=== PATIENT | female | born 1960 | race Caucasian/White ===

== ENCOUNTER 2019-03-16 19:54 | Emergency (ER) | payer OTHER ==
[~2019-03-16] VITALS: Ht 157.5 cm; Wt 72.1 kg
[~2019-03-16 19:54] MED LIST: BYSTOLIC 5 MG5 M1 PO; LISINOPRIL-HCT1 EAC1 PO
[2019-03-16 20:34] LABS: ABSOLUTE BASOPHILS 0.1 thou/uL (0.0-0.2); ABSOLUTE EOSINOPHILS 0.3 thou/uL (0.0-0.7); ABSOLUTE LYMPHOCYTES 2.5 thou/uL (0.8-5.3); ABSOLUTE MONOCYTES 0.7 thou/uL (0.0-1.2); ABSOLUTE NEUTROPHILS 5.6 thou/uL (1.6-8.1); BASOPHILS 1.2 %; EOSINOPHILS 3.3 %; HEMATOCRIT 44.2 % (37.0-47.0); HEMOGLOBIN 15.4 gm/dL (12.0-15.0); LYMPHOCYTES 27.3 %; MCH 31.3 pg (26.0-34.0); MCHC 34.9 g/dL (28.0-37.0); MCV 89.6 fL (80.0-100.0); MONOCYTES 7.5 %; MPV 8.3 fl. (7.2-11.1); NUCLEATED RBCS 0 /100WBC; PLATELET COUNT* 383 thou/uL (150-400); POLYS 60.7 %; RBC 4.94 mil/uL (4.20-5.00); RDW-CV 13.4 % (10.5-14.5); WBC 9.2 thou/uL (4.0-11.0)
[2019-03-16 20:40] LABS: CALCIUM 10.4 mg/dL (8.5-10.1); CREATININE 1.5 mg/dL (0.6-1.3)
[2019-03-16 20:42] LABS: POTASSIUM 2.8 mmol/L (3.5-5.1)
[2019-03-16 20:52] LABS: ALBUMIN 3.6 g/dL (3.4-5.0); MAGNESIUM 2.4 mg/dL (1.8-2.4); TOTAL BILIRUBIN 0.4 mg/dL (<0.1-1.0); TOTAL PROTEIN 8.1 g/dL (6.4-8.2)
[2019-03-16] MEDS ORDERED: POTASSIUM20 PO (23:51)
[2019-03-16 23:59] VITALS: BP 130/66
== END 2019-03-17 | disposition home or self-care (01) ==
LOC: M.ERS 19:54
PROVIDERS: Emergency Medicine
DX: R20.2 Paresthesia of skin (principal); I10 Essential (primary) hypertension; Z90.710 Acquired absence of both cervix and uterus; Z88.2 Allergy status to sulfonamides; F17.210 Nicotine dependence, cigarettes, uncomplicated

== ENCOUNTER 2019-04-02 08:16 | Inpatient (IN) | payer OTHER ==
[~2019-04-02] VITALS: Ht 157.5 cm; Wt 70.8 kg
[~2019-04-02 08:16] MED LIST changes: +POTASSIUM20 PO
[2019-04-02 08:18] VITALS: BP 129/60
[2019-04-02 08:39] LABS: ABSOLUTE BASOPHILS 0.2 thou/uL (0.0-0.2); ABSOLUTE EOSINOPHILS 0.2 thou/uL (0.0-0.7); ABSOLUTE LYMPHOCYTES 1.8 thou/uL (0.8-5.3); ABSOLUTE MONOCYTES 1.2 thou/uL (0.0-1.2); ABSOLUTE NEUTROPHILS 9.1 thou/uL (1.6-8.1); BASOPHILS 1.4 %; EOSINOPHILS 1.7 %; HEMATOCRIT 48.5 % (37.0-47.0); HEMOGLOBIN 16.6 gm/dL (12.0-15.0); LYMPHOCYTES 14.7 %; MCH 30.8 pg (26.0-34.0); MCHC 34.2 g/dL (28.0-37.0); MCV 90.2 fL (80.0-100.0); MONOCYTES 9.8 %; MPV 8.6 fl. (7.2-11.1); NUCLEATED RBCS 0 /100WBC; PLATELET COUNT* 394 thou/uL (150-400); POLYS 72.4 %; RBC 5.38 mil/uL (4.20-5.00); RDW-CV 13.4 % (10.5-14.5); WBC 12.6 thou/uL (4.0-11.0)
[2019-04-02 08:51] LABS: CALCIUM 10.3 mg/dL (8.5-10.1); CREATININE 1.8 mg/dL (0.6-1.3); POTASSIUM 3.3 mmol/L (3.5-5.1)
[2019-04-02 08:54] LABS: PROTIME 10.7 Seconds (9.20-11.50)
[2019-04-02 09:02] LABS: ALBUMIN 3.9 g/dL (3.4-5.0); TOTAL BILIRUBIN 0.6 mg/dL (<0.1-1.0); TOTAL PROTEIN 8.1 g/dL (6.4-8.2); TROPONIN-I LEVEL 0.07 ng/mL (<0.06)
[2019-04-02 13:07] LABS: CHOLESTEROL 306 mg/dL (<200); HDL CHOLESTEROL 36 mg/dL (>40); LDL CHOLESTEROL 212 mg/dL (<100); SERUM ASSESSMENT Clear; TC:HDL 8.5 Ratio (Not establshd); TRIGLYCERIDE 290 mg/dL (<150); VLDL 58 mg/dL (<40)
[2019-04-02 15:54] VITALS: BP 141/58
--- NOTE | 2019-04-02 17:09 | 2DMMODE ---
[place] [address] 2 D/M-MODE ECHOCARDIOGRAM Name: XU BAUTISTA Room: [facility] ADM IN [facility]#: [id number] Admission: 04/02/19 Attend Phys: Drew Patel Discharge: Date of : 64 Date of Service: 04/02/19 1709 Report #: [id number] THIS REPORT FOR: //name// APPROVED REPORT Study performed: 04/02/2019 15:35:59 EXAM: Comprehensive 2D, Doppler, and color-flow Echocardiogram Patient Location: In-Patient Room #: 170 BSA: 1.70 HR: 63 bpm BP: 141/58 mmHg Other Information Study Quality: Good Indications Chest Pain 2D Dimensions IVSd: 17.12 (7-11mm) LVOT Diam: 20.30 (18-24mm) LVDd: 34.79 mm PWd: 14.71 (7-11mm) Ascending Ao: 32.56 (22-36mm) LVDs: 23.97 (25-40mm) Aortic Root: 27.88 mm Volumes Left Atrial Volume (Systole) LA ESV Index: 16.50 mL/m2 Aortic Valve AoV Peak Clint.: 1.70 m/s AO Peak Gr.: 11.50 mmHg LVOT Max P.96 mmHg AO Mean Gr.: 6.03 mmHg LVOT Mean P.51 mmHg LVOT Max V: 1.22 m/s AO V2 VTI: 28.64 cm LVOT Mean V: 0.71 m/s BOBBI (VTI): 2.67 cm2 LVOT V1 VTI: 23.61 cm Mitral Valve E/A Ratio: 0.58 MV Decel. Time: 484.83 ms MV E Max Clint.: 0.31 m/s MV PHT: 140.60 [place] [address] 2 D/M-MODE ECHOCARDIOGRAM Name: XU BAUTISTA Room: [place] [address] ADM IN .R.#: [id number] Admission: 04/02/19 Attend Phys: Drew Patel Discharge: Date of : 64 Date of Service: 04/02/19 1709 Report #: [id number] MVA (PHT): 1.56 cm2 TDI E/Lateral E': 5.17 E/Medial E': 7.75 Medial E' Clint.: 0.04 m/s Lateral E' Clint.: 0.06 m/s Pulmonary Valve PV Peak Clint.: 0.93 m/s PV Peak Gr.: 3.47 mmHg Tricuspid Valve RAP Estimate: 5.00 mmHg TR Peak Gr.: 15.94 mmHg RVSP: 20.94 mmHg PA Pressure: 20.94 mmHg Left Ventricle The left ventricle is normal size. There is normal LV segmental wall motion. Moderate concentric left ventricular hypertrophy. Left ventricular systolic function is normal. The left ventricular ejection fraction is within the normal range. LVEF is 65%. Grade I - abnormal relaxation pattern. Right Ventricle The right ventricle is normal size. The right ventricular systolic function is normal. Atria The left atrium size is normal. The right atrium size is normal. Aortic Valve The aortic valve is normal in structure. No aortic regurgitation is present. There is no aortic valvular stenosis. Mitral Valve The mitral valve is normal in structure. There is no mitral valve regurgitation noted. No evidence of mitral valve stenosis. Tricuspid Valve The tricuspid valve is normal in structure. Mild tricuspid regurgitation. Pulmonic Valve The pulmonary valve is normal in structure. There is no pulmonic [place] [address] 2 D/M-MODE ECHOCARDIOGRAM Name: XU BAUTISTA Room: [address] IN [facility]#: [id number] Admission: 04/02/19 Attend Phys: Drew Patel Discharge: Date of : 64 Date of Service: 04/02/19 1709 Report #: [id number] Great Vessels The aortic root is normal in size. IVC is normal in size and collapses >50% with inspiration. Pericardium There is no pericardial effusion. <Conclusion> The left ventricle is normal size. Moderate concentric left ventricular hypertrophy. Left ventricular systolic function is normal. The left ventricular ejection fraction is within the normal range. LVEF is 65%. Grade I - abnormal relaxation pattern. The right ventricle is normal size. The left atrium size is normal. The aortic valve is normal in structure. The mitral valve is normal in structure. The tricuspid valve is normal in structure. IVC is normal in size and collapses >50% with inspiration. There is no pericardial effusion. There is normal LV segmental wall motion. <ELECTRONICALLY SIGNED> By: Jonnathan Ruff MD, FACC 04/02/191708 08 08 Jonnathan Ruff MD, FACC /INF
--- NOTE | 2019-04-02 17:35 | EKG ---
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: MS : 1960 Requested By: Shaquille Coyle Order Number: [id number] MD: Kosta Lawrence Measurements Intervals [place] Rate: 87 P: 17 VA: 144 QRS: -13 QRSD: 154 T: -24 QT: 438 QTc: 527 Interpretive Statements Sinus rhythm Possible left atrial enlargement Right bundle branch block No previous ECG available for comparison Electronically Signed On 04-02-2019 17:34:50 CDT by Kosta Lawrence [email or web address] <ELECTRONICALLY SIGNED> By: Kosta Lawrence MD, [facility] 04/02/19 1734 D: [id number] 7 Kosta Lawrence MD, FACC /EPI
--- NOTE | 2019-04-02 17:36 | EKG ---
[place] [address] ELECTROCARDIOGRAM REPORT Name: XU BAUTISTA Room: [place] [address] ADM IN [facility].#: [id number] Admission: 04/02/19 Attend Phys: Alida Henry Discharge: Date of : 64 Report #: [id number] THIS REPORT FOR: //name// [facility] ED Test Date: 2019-04-02 Test Time: 11:07:21 Pat Name: XU BAUTISTA Department: Room: [facility] Gender: F Hospital Intern: MS : 1960 Requested By: Shaquille Coyle Order Number: [id number] MD: Kosta Lawrence Measurements Intervals [place] Rate: 62 P: -4 CT: 168 QRS: -10 QRSD: 154 T: 22 QT: 475 QTc: 483 Interpretive Statements Sinus rhythm Right bundle branch block Left ventricular hypertrophy Borderline prolonged QT interval No previous ECG available for comparison Electronically Signed On 04-02-2019 17:36:06 CDT by Kosta Lawrence [email or web address] <ELECTRONICALLY SIGNED> By: Kosta Lawrence MD, [facility] 04/02/19 1736 06 06 Kosta Lawrence MD, FACC /EPI
[2019-04-02 19:45] VITALS: BP 148/75
[2019-04-02 20:00] VITALS: BP 150/61
--- NOTE | 2019-04-02 20:00 | NUR ---
RECEIVED REPORT AND ADMITTED TO ROOM AT 1945. NO ACUTE DISTRESS, DENIES CHEST PAIN BUT NUMBNESS CONT INTO RT THUMB. TELEMETRY APPLIED SHOWING SR. SEE ADMISSION ASSESSMENT AND HX. WILL CONT TO ASSIST NEEDED.
[2019-04-03] VITALS (13 sets, daily range): BP systolic 105–151; BP diastolic 51–78
--- NOTE | 2019-04-03 06:11 | NUR ---
SLEPT WELL TONIGHT. NO COMPLAINTS VOICED. TELEMETRY SHOWING SB WITH RATE OCC INTO UPPER 40'S. NPO SINCE [place] FOR TEST THIS AM. HS GOALS OF REST AND SAFETY ACHIEVED. HOURLY ROUNDING OBSERVED.
--- NOTE | 2019-04-03 10:47 | NUR ---
RECEIVED REPORT AND ASSUMED CARE OF PT AT 0730.PT IS A/OX4.TRACING SB IN THE MONITOR.IV PATENT WITH NS INFUSING AT 75ML/HR PER ORDER.NPO FOR CATH TODAY.DENIES ANY CHEST PAIN AND SOA.ON RA.UP AD JACOB.CONSENT SIGNED BY PT HERSELF FOR CATH.PROCEDURE AND RISK EXPLAINED BY NURSE PRACTIONER.CALL LIGHT AND FALL PRECAUTIONS IN PLACE.WILL CONTINUE TO MONITOR.
--- NOTE | 2019-04-03 15:32 | NUR ---
cm completed initial assssment. discussed d/c plan. pt a&Ox4. 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 pt has support from brother and his family, whom she lives with. pt has 0 DME nor any hx w/HH or SNF, pt has no preference for either if determined services are needed. CM will continue to follow pt to assist as needed.
--- NOTE | 2019-04-03 16:07 | CARD ---
[facility] [address] [place] [address] CARDIAC CATH REPORT Name: XU BAUTISTA VICENTE Room: [address] ADM IN M.R.#: [id number] Admission: 04/02/19 Attend Phys: Alida Henry Discharge: Date of : 64 Report #: [id number] THIS REPORT FOR: //name// APPROVED REPORT Study performed: 04/03/2019 13:31:42 Patient Details Patient Status: In-Patient Room #: 205 The patient is a 58 year-old female Event Personnel Kosta Lawrence Meal Grinder Tender, Laura Grant RN RN, Aaron Kidd Scrub, Nick Canchola (R) Monitor Procedures Performed Left Heart Cath w/or w/o Coronaries Procedure Narrative A 6fr Ultimum Sheath sheath was inserted into the right femoral artery. Coronary angiography was performed using coronary diagnostic catheters. The right coronary system was accessed and visualized with a Diagnostic JR4 catheter. The left coronary system was accessed and visualized with a Diagnostic JL4 catheter. The left ventricle was accessed and visualized with a Diagnostic Angled Pigtail catheter. Left ventricular/Aortic Valve gradient assessed via catheter pullback. Closure device was deployed with a Fr MynxGrip 6/7F. The patient tolerated the procedure well and there were no complications associated with the procedure. Intraoperative Conscious Sedation Sedation start time: 13:59 Case end Time: 14:09 Fentanyl 25 mcg Versed 2 mg Fluoro Time: 1.6 minutes Dose: DAP 01390 cGycm2 623 mGy Contrast Type and Amount: Visipaque 100 ml Coronary Angiography The patient's coronary anatomy is right dominant. Diagnostic Cath Left Main Normal and trifurcates into an LAD, circumflex [place] [address] CARDIAC CATH REPORT Name: XU BAUTISTA Room: [address] IN [facility]#: [id number] Admission: 04/02/19 Attend Phys: Alida Henry Discharge: Date of : 64 Report #: [id number] LAD Normal in the proximal mid and distal portion. Diagonal 1 Moderate size normal and branch. Circumflex Normal in the proximal mid and distal portion. OM1 Normal large and branch. OM2 Moderate size and normal. Right Coronary Normal in the proximal mid and distal portion. R PDA Normal. RPLV Moderate in size and branched. Normal. Ramus Large branched vessel that is normal. Left Ventriculography The left ventricle is normal in size with hyperdynamic contractility. The left ventricular ejection fraction is estimated to be 90%. Left ventricular wall motion abnormalities are not present. Left ventricular gram findings consistent with possible hypertrophic obstructive cardiomyopathy. Hemodynamics The aortic pressure is 117/67 mmHg with a mean of 87 mmHg. The left ventricular pressure is 115/2 mmHg with a mean of mmHg. The left ventricular end diastolic pressure is 6 mmHg. Conclusion 1. Normal coronary arteries. 2. Normal left ventricular end-diastolic pressure. 3. No gradient in the pullback across the aortic valve. 4. Hyperdynamic left ventricular systolic function with near cavity obliteration on systole suggestive of hypertrophic obstructive cardiomyopathy. Recommendations 1. Continue medical management. <ELECTRONICALLY SIGNED> By: Kosta Lawrence MD, [facility] 04/03/19 1607 1607 1607Microberta Lawrence MD, FACC /INF
--- NOTE | 2019-04-03 16:46 | NUR ---
PT IS A/OX4.TRACING SR ON THE MONITOR.PT HAD CATH TODAY.RT GROIN CATH CLEAN DRY AND INTACT.NO SIGNS OF HEMMORAGE AND HAEMOTOMA.NO STENTS PLACED.IV PATENT WITH NS INFUSING AT 75ML/HR.PT KEPT ON STRICT BED REST AND EDUCATED ON LIMB MOVEMENT LIMITATION.POST CATH VITALS MONITORES AND CHARTED PER PROTOCOL.HIGH BLOOD PRESSURE MANAGED WITH MED.ELECTROLYTE REPLACED PER PROTOCOL.NO COMPLAINTS OF CHEST PAIN.HRLY COMPLETED.CALL LIGHT AND FALL PRECAUTIONS IN PLACE.WILL CONTINUE TO MONITOR.
[2019-04-03 20:39] LABS: CALCIUM 9.4 mg/dL (8.5-10.1); CREATININE 1.6 mg/dL (0.6-1.3); MAGNESIUM 2.3 mg/dL (1.8-2.4); POTASSIUM 4.2 mmol/L (3.5-5.1)
[2019-04-04] VITALS: BP 141/71
[2019-04-04 04:00] VITALS: BP 160/83
--- NOTE | 2019-04-04 04:55 | NUR ---
PT CARE ASSUMED AT 1930. SAT MAINTAINED IN RA. ALERT AND ORIENTED X4. CALL LIGHT WITHIN REACH AND BED IN LOW POSITION. DENIES PAIN AND SOB. CATH SITE C/D/I. HOURLY ROUDNING DONE FOR PT SAFETY.
[2019-04-04 05:32] LABS: HEMATOCRIT 40.4 % (37.0-47.0); MPV 8.6 fl. (7.2-11.1); RBC 4.44 mil/uL (4.20-5.00); RDW-CV 13.8 % (10.5-14.5); WBC 7.8 thou/uL (4.0-11.0)
[2019-04-04 05:33] LABS: CALCIUM 9.1 mg/dL (8.5-10.1); CREATININE 1.3 mg/dL (0.6-1.3)
[2019-04-04 05:47] LABS: HEMOGLOBIN 13.8 gm/dL (12.0-15.0)
[2019-04-04 07:51] VITALS: BP 156/63
--- NOTE | 2019-04-04 09:33 | NUR ---
RECEIVED REPORT AND ASSUMED CARE OF PT AT 0735.PT IS A/OX4.TRACING SB ON THE MONITOR.IV PATENT WITH IV FLUIDS INFUSING.ON RA.UP STAND BY.CATH SITE CLEAN DRY AND INTACT.NO SKIN ISSUES.NO COMPLAINTS OF PAIN.SAFETY PRECAUTIONS IN PLACE.WILL CONTINUE TO MONITOR.
[2019-04-04] MEDS ORDERED: TOPROL XL25 MG PO (11:40)
[2019-04-04] MEDS ORDERED: TOPROL XL50 MG PO (11:43)
[2019-04-04 11:48] VITALS: BP 137/62
[2019-04-04] MEDS ORDERED: LISINOPRIL10 MG PO (11:50)
--- NOTE | 2019-04-04 12:43 | NUR ---
PT OK TO DISCHARGE.DISCHARGE PAPER WORK COMPLETED AND GIVEN TO PT.NEW SCRIPTS GIVEN WITH EDUCATION.IV AND HEART MONITOR TAKEN OUT AND RETURNED TO STATION.ALL PERSONAL BELONGINGS HANDED OVER TO PT.EDUCATION GIVEN ON FOLLOW UP AND DIET.PT WAITING ON ROOM FOR HER RIDE.
[2019-04-04] MEDS ORDERED: LIPITOR10 MG PO (13:01)
== END 2019-04-04 14:55 | disposition home or self-care (01) | DRG 280 ==
LOC: M.ERS 08:16 → M.TBA-ER 11:19 → M.2W 11:19
PROVIDERS: Emergency Medicine; Internal Medicine Cardiovascular Disease; Registered Nurse; ADMIT Internal Medicine
PROC: B2151ZZ Fluoroscopy of Left Heart using Low Osmolar Contrast (ICD-10-PCS; principal; 2019-04-03)
PROC: B211YZZ Fluoroscopy of Multiple Coronary Arteries using Other Contrast (ICD-10-PCS; 2019-04-03)
PROC: 4A023N7 Measurement of Cardiac Sampling and Pressure, Left Heart, Percutaneous Approach (ICD-10-PCS; 2019-04-03)
DX: I21.4 Non-ST elevation (NSTEMI) myocardial infarction (principal); N17.0 Acute kidney failure with tubular necrosis; I50.33 Acute on chronic diastolic (congestive) heart failure; I42.2 Other hypertrophic cardiomyopathy; E87.6 Hypokalemia; I11.0 Hypertensive heart disease with heart failure; D72.829 Elevated white blood cell count, unspecified; F17.210 Nicotine dependence, cigarettes, uncomplicated; E78.5 Hyperlipidemia, unspecified; Z90.710 Acquired absence of both cervix and uterus; Z88.2 Allergy status to sulfonamides; Z79.82 Long term (current) use of aspirin; Z79.899 Other long term (current) drug therapy; Z80.0 Family history of malignant neoplasm of digestive organs; Z80.8 Family history of malignant neoplasm of other organs or systems; Z71.6 Tobacco abuse counseling

== ENCOUNTER 2019-11-08 11:42 | Emergency (ER) | payer OTHER ==
[~2019-11-08] VITALS: Ht 157.5 cm; Wt 74.8 kg
[~2019-11-08 11:42] MED LIST changes: +ACYCLOVIR 400400 MG PO; +CO Q-10100 MG PO; +FISH OIL 1,001000 M2 PO; +KLOR-CON 1010 MEQ PO; +LIPITOR10 MG PO; +LISINOPRIL10 MG PO; +PREDNISONE 20 M20 M1 PO; +TOPROL XL25 MG PO; +TOPROL XL50 MG PO
[2019-11-08 12:42] LABS: URINE BILIRUBIN NEGATIVE (Negative); URINE BLOOD TRACE (Negative); URINE CLARITY SL CLOUDY; URINE COLOR YELLOW; URINE GLUCOSE-RANDOM NEGATIVE (Negative); URINE KETONES NEGATIVE (Negative); URINE LEUKOCYTES-REFLEX NEGATIVE (Negative); URINE NITRITE-REFLEX NEGATIVE (Negative); URINE PROTEIN TRACE (Negative); URINE SPECIFIC GRAVITY 1.025 (1.005-1.030); URINE UROBILINOGEN 0.2 E.U./dl (0.2-1.0)
[2019-11-08 12:53] LABS: SQUAMOUS >10 Many /LPF (0-3); URINE RBC None Seen /HPF (0-2); URINE WBC-REFLEX 0-5 Rare /HPF (0-5)
[2019-11-08 12:55] LABS: AMORPHOUS URATES Moderate /LPF (None Seen); CASTS None Seen /LPF (None Seen); MUCUS 0-3 Light strn/LPF (None Seen)
[2019-11-08 13:02] LABS: ABSOLUTE EOSINOPHILS 0.3 thou/uL (0.0-0.7); ABSOLUTE LYMPHOCYTES 2.4 thou/uL (0.8-5.3); ABSOLUTE MONOCYTES 0.7 thou/uL (0.0-1.2); ABSOLUTE NEUTROPHILS 4.4 thou/uL (1.6-8.1); BASOPHILS 0.2 %; EOSINOPHILS 3.3 %; HEMATOCRIT 43.2 % (37.0-47.0); LYMPHOCYTES 30.8 %; MCH 31.5 pg (26.0-34.0); MCHC 34.8 g/dL (28.0-37.0); MCV 90.6 fL (80.0-100.0); MONOCYTES 8.6 %; MPV 7.7 fl. (7.2-11.1); NUCLEATED RBCS 0 /100WBC; PLATELET COUNT* 354 thou/uL (150-400); POLYS 57.1 %; RBC 4.77 mil/uL (4.20-5.00); RDW-CV 13.3 % (10.5-14.5); WBC 7.7 thou/uL (4.0-11.0)
[2019-11-08 13:09] LABS: CALCIUM 9.9 mg/dL (8.5-10.1); CREATININE 1.3 mg/dL (0.6-1.3)
[2019-11-08] MEDS ORDERED: KLOR-CON 10 ER10 MEQ PO ×2 (15:16→15:20)
[2019-11-08 15:26] VITALS: BP 141/64
--- NOTE | 2019-11-08 16:12 | EKG ---
[place] [address] ELECTROCARDIOGRAM REPORT Name: LILYXU [facility] [id number] Admission: 11/08/19 Attend Phys: Discharge: 11/08/19 Date of : 64 Report #: [id number] THIS REPORT FOR: //name// [facility] ED Test Date: 2019-11-08 Test Time: 12:48:50 Pat Name: XU BAUTISTA Department: Room: Gender: F Business Office Coordinator: CYN : 1960 Requested By: Maged Casiano Order Number: [id number] MD: Jaylen Carter Measurements Intervals [place] Rate: 63 P: 30 MO: 168 QRS: 1 QRSD: 162 T: 39 QT: 455 QTc: 466 Interpretive Statements Sinus rhythm Probable left atrial enlargement Right bundle branch block Compared to ECG 05/14/2019 16:11:39 Left ventricular hypertrophy no longer present Electronically Signed On 11-08-2019 16:11:45 TECHNICAL SERVICE REP by Jaylen Carter [email or web address] <ELECTRONICALLY SIGNED> By: Jaylen Carter MD, [facility] 11/08/19 1611 D: 128 1248 Jaylen Carter MD, FACC /EPI
== END 2019-11-08 15:27 | disposition home or self-care (01) ==
LOC: M.ERS 11:42
PROVIDERS: Nurse Practitioner Psychiatric/Mental Health
DX: E87.6 Hypokalemia (principal); R42 Dizziness and giddiness; I10 Essential (primary) hypertension; F17.210 Nicotine dependence, cigarettes, uncomplicated; Z90.710 Acquired absence of both cervix and uterus; Z88.2 Allergy status to sulfonamides

== ENCOUNTER 2019-11-29 10:05 | Inpatient (IN) | payer OTHER ==
[~2019-11-29] VITALS: Ht 157.5 cm; Wt 70.1 kg
--- NOTE | ~2019-11-29 | EEG ---
[address] [address] EEG STUDY REPORT Name: XU BAUTISTA VICENTE Room: [address] IN M.R.#: [id number] Admission: 11/29/19 Attend Phys: Irving Sun Discharge: Date of : 64 Report #: [id number] THIS REPORT FOR: //name// CC: Adilson Ervin DATE OF SERVICE: 11/30/2019 This patient is being evaluated for the possibility of seizures as the cause of syncope. EEG was done by placing the electrode by standard 10-20 system of electrode placement. Both referential and sequential montages were used for recording. Background activity in this patient's EEG is about 11 Hz and 30 microvolt. It is a very well formed background activity. The patient went to sleep that is associated with bilateral slowing and vertex sharp waves. Throughout the record, no active epileptiform activity was noticed. IMPRESSION: This patient's EEG is unremarkable. Thank you very much for this referral. By: 1308 1314Pdianne Salcido MD /nt
--- NOTE | ~2019-11-29 | CON ---
[address] [address] CONSULTATION Name: XU BAUTISTA Room: [address] IN M.R.#: [id number] Admission: 11/29/19 Attend Phys: Irving Sun Discharge: Date of : 64 Report #: [id number] THIS REPORT FOR: //name// CC: Adilson Ervin DATE OF SERVICE: 11/29/2019 HISTORY OF PRESENT ILLNESS: A 59-year-old female patient who was evaluated by me for an episode of syncope. The patient does not remember much about it. She said she felt dizzy and then she passed out. It lasted just for a few seconds. The patient thinks she had this in the past, but she does not know when it happened. When she came in, she was slightly hyponatremic with potassium of 3, but she had run low potassium in the past. She feels back to her baseline now. REVIEW OF SYSTEMS: Positive for coronary workup in the past and looks like that was unremarkable. The patient does not know any symptoms suggestive of strokes in the past except during this admission. At this time, she had an episode of syncope, but her MRI demonstrated multiple old and new strokes. REVIEW OF SYSTEMS: A 14-point review of system was carried out. The patient indicated that she does not have any new eye, ENT, respiratory, GI, , musculoskeletal, constitutional, dermatological, hematological, psychiatric, throat, and allergic symptom associated with present symptomatology. She did have syncope. PAST MEDICAL HISTORY: Positive for similar symptoms, but the history is not very clear. FAMILY HISTORY: Negative for early age stroke. SOCIAL HISTORY: She smokes. She said she is cutting back and she smokes about 2-3 cigarettes a day now. PHYSICAL EXAMINATION: Indicate she is alert, responsive, able to follow simple and complex command. Her speech, concentration, fund of knowledge and memory is at her baseline. Cranial nerve examination 2-12 looks unremarkable. Strength, sensation, reflexes and tone look symmetrical. I could not look at the patient's fundus. There is no meningeal sign. There is no thyroid mass. There is no carotid bruit. Cardiac and respiratory examinations appear noncontributory. Blood pressure is 117/61, respiration is 18, pulse is 87, and temperature is 97.9. LABORATORY DATA: White count is 11. Her cholesterol is 306 and LDL is 212. [place] [address] CONSULTATION Name: XU BAUTISTA Room: [address] IN [facility]#: [id number] Admission: 11/29/19 Attend Phys: Irving Sun Discharge: Date of : 64 Report #: [id number] Imaging studies were reviewed and is summarized as above. IMPRESSION: 1. Multiple cerebrovascular accidents. This is most likely secondary to small vessel disease caused by severe dyslipidemia and hypertension. Smoking also contributed to that. Embolization is considered less likely, but I will suggest 30 days event monitor or implantable monitor to monitor the rhythm further as an outpatient. 2. Clinically, it does not look like vasculitis. We will send some blood workup in this patient, but there is limitation how much workup can be done and the BUN and creatinine is high and GFR is only 20 and I will avoid any dye in this patient at least for the time being. The patient was not on any antiplatelet therapy and I will suggest either putting her on aspirin or Plavix. She should be on intensive statin therapy. She is not very compliant and I discussed with her that she needs to be compliant. The patient's episode of syncope was not because of the stroke or anything else, which have demonstrated so far. I will suggest getting a Cardiology consult to consider either 30 days event monitor or implantable monitor in this patient. This patient does need further workup and Dr. Jett will follow up this patient with you from tomorrow. By: 1826 02Ash Salcido MD /nt
[~2019-11-29 10:05] MED LIST changes: +KLOR-CON 10 ER10 MEQ PO
[2019-11-29 10:08] VITALS: BP 122/75
[2019-11-29 10:48] LABS: ABSOLUTE EOSINOPHILS 0.2 thou/uL (0.0-0.7); ABSOLUTE LYMPHOCYTES 1.9 thou/uL (0.8-5.3); ABSOLUTE MONOCYTES 1.1 thou/uL (0.0-1.2); ABSOLUTE NEUTROPHILS 7.8 thou/uL (1.6-8.1); BASOPHILS 0.3 %; EOSINOPHILS 1.4 %; HEMATOCRIT 42.9 % (37.0-47.0); HEMOGLOBIN 15.2 gm/dL (12.0-15.0); LYMPHOCYTES 17.5 %; MCH 32.1 pg (26.0-34.0); MCHC 35.5 g/dL (28.0-37.0); MCV 90.3 fL (80.0-100.0); MONOCYTES 9.6 %; MPV 7.6 fl. (7.2-11.1); NUCLEATED RBCS 0 /100WBC; PLATELET COUNT* 396 thou/uL (150-400); POLYS 71.2 %; RBC 4.75 mil/uL (4.20-5.00); RDW-CV 13.2 % (10.5-14.5)
[2019-11-29 10:59] LABS: CALCIUM 10.2 mg/dL (8.5-10.1); CREATININE 2.5 mg/dL (0.6-1.3)
[2019-11-29 11:02] LABS: APTT 24.9 Seconds (25.0-31.3); INR 1.1; PROTIME 10.9 Seconds (9.20-11.50)
[2019-11-29 11:03] LABS: ALBUMIN 3.8 g/dL (3.4-5.0); TOTAL BILIRUBIN 0.6 mg/dL (<0.1-1.0); TOTAL PROTEIN 7.8 g/dL (6.4-8.2)
[2019-11-29 14:26] VITALS: BP 123/70
[2019-11-29] MEDS ORDERED: LISINOPRIL-HCT1 EAC1 PO (16:04)
[2019-11-29 16:17] VITALS: BP 114/59
--- NOTE | 2019-11-29 17:08 | EKG ---
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: : 1960 Requested By: Bi Garcia Order Number: [id number] MD: Jonnathan Ruff Measurements Intervals [place] Rate: 68 P: 16 ME: 178 QRS: -14 QRSD: 153 T: 34 QT: 469 QTc: 499 Interpretive Statements Sinus rhythm Right bundle branch block Probable left ventricular hypertrophy Borderline prolonged QT interval Compared to ECG 11/08/2019 12:48:50 No significant changes Electronically Signed On 11-29-2019 17:07:17 RIGGING UP WORKER by Jonnathan Ruff [email or web address] <ELECTRONICALLY SIGNED> By: Jonnathan Ruff MD, [facility] 11/29/19 1707 1012 1012 Jonnathan Ruff MD, [facility] /EPI
[2019-11-29 17:13] VITALS: BP 117/61
[2019-11-29 17:54] LABS: URINE BLOOD NEGATIVE (Negative); URINE CLARITY CLEAR; URINE COLOR YELLOW; URINE GLUCOSE-RANDOM TRACE (Negative); URINE KETONES NEGATIVE (Negative); URINE LEUKOCYTES-REFLEX TRACE (Negative); URINE NITRITE-REFLEX NEGATIVE (Negative); URINE PROTEIN 1+ (Negative); URINE SPECIFIC GRAVITY >= 1.030 (1.005-1.030); URINE UROBILINOGEN 0.2 E.U./dl (0.2-1.0)
[2019-11-29 17:57] LABS: HYALINE CASTS 4-10 Moderate /LPF (None Seen); SQUAMOUS >10 Many /LPF (0-3); URINE BILIRUBIN 1+ (Negative)
[2019-11-29 17:58] LABS: MUCUS None Seen strn/LPF (None Seen)
[2019-11-29 17:59] LABS: CRYSTALS None Seen /LPF (None Seen); ICTOTEST (BILI CONFIRMATORY) Negative (Negative); URINE RBC None Seen /HPF (0-2); URINE WBC-REFLEX 0-5 Rare /HPF (0-5)
[2019-11-29 18:25] LABS: CHOLESTEROL 292 mg/dL (<200); HDL CHOLESTEROL 34 mg/dL (>40); LDL CHOLESTEROL 222 mg/dL (<100); TC:HDL 8.6 Ratio (Not establshd); TRIGLYCERIDE 184 mg/dL (<150); VLDL 37 mg/dL (<40)
[2019-11-29 18:26] LABS: SERUM ASSESSMENT Clear
[2019-11-29 21:00] VITALS: BP 114/54
[2019-11-30] VITALS: BP 91/51
[2019-11-30 04:00] VITALS: BP 105/48; BP 114/42
[2019-11-30 08:37] VITALS: BP 107/57
[2019-11-30 12:57] VITALS: BP 105/45
[2019-11-30 16:32] VITALS: BP 123/60
[2019-11-30 20:00] VITALS: BP 97/47
[2019-12-01 00:14] VITALS: BP 124/40
[2019-12-01 02:10] LABS: GLYCOHEMOGLOBIN (HGB A1C) 5.3 % (4.8-5.6)
[2019-12-01 04:22] VITALS: BP 97/59
[2019-12-01 07:30] VITALS: BP 149/72
[2019-12-01 11:23] VITALS: BP 140/58
[2019-12-01 13:11] LABS: IgA 180 mg/dL (87-352); IgG 1041 mg/dL (700-1600); IgM 105 mg/dL (26-217)
[2019-12-01 15:42] VITALS: BP 123/69
[2019-12-01 18:39] LABS: CALCIUM 8.9 mg/dL (8.5-10.1); CREATININE 1.6 mg/dL (0.6-1.3); MAGNESIUM 2.1 mg/dL (1.8-2.4); POTASSIUM 3.1 mmol/L (3.5-5.1)
[2019-12-01 20:00] VITALS: BP 144/81
[2019-12-02] VITALS: BP 152/75
[2019-12-02 04:00] VITALS: BP 152/70
[2019-12-02 06:16] LABS: HEMATOCRIT 38.7 % (37.0-47.0); HEMOGLOBIN 13.7 gm/dL (12.0-15.0); MCH 31.9 pg (26.0-34.0); MCHC 35.4 g/dL (28.0-37.0); MCV 90.2 fL (80.0-100.0); MPV 7.9 fl. (7.2-11.1); RBC 4.28 mil/uL (4.20-5.00); RDW-CV 12.9 % (10.5-14.5); WBC 6.7 thou/uL (4.0-11.0)
[2019-12-02 06:38] LABS: ALBUMIN 3.1 g/dL (3.4-5.0); CALCIUM 9.1 mg/dL (8.5-10.1); CREATININE 1.4 mg/dL (0.6-1.3); MAGNESIUM 2.2 mg/dL (1.8-2.4); TOTAL BILIRUBIN 0.2 mg/dL (<0.1-1.0); TOTAL PROTEIN 6.8 g/dL (6.4-8.2)
[2019-12-02 06:39] LABS: POTASSIUM 2.9 mmol/L (3.5-5.1)
[2019-12-02 07:56] VITALS: BP 143/66
[2019-12-02 12:36] VITALS: BP 134/68
[2019-12-02 17:11] VITALS: BP 136/76
[2019-12-02 20:20] VITALS: BP 145/83
[2019-12-03] VITALS (7 sets, daily range): BP systolic 125–140; BP diastolic 54–73
[2019-12-03 06:01] LABS: HEMATOCRIT 36.6 % (37.0-47.0); HEMOGLOBIN 12.9 gm/dL (12.0-15.0); MCH 31.9 pg (26.0-34.0); MCHC 35.3 g/dL (28.0-37.0); MCV 90.3 fL (80.0-100.0); MPV 8.1 fl. (7.2-11.1); RBC 4.06 mil/uL (4.20-5.00); RDW-CV 13.1 % (10.5-14.5); WBC 6.3 thou/uL (4.0-11.0)
[2019-12-03 06:15] LABS: CALCIUM 8.7 mg/dL (8.5-10.1); CREATININE 1.4 mg/dL (0.6-1.3); POTASSIUM 3.8 mmol/L (3.5-5.1)
--- NOTE | 2019-12-03 10:38 | EKG ---
[place] [address] ELECTROCARDIOGRAM REPORT Name: XU BAUTISTA Room: [address] ADM IN M.R.#: [id number] Admission: 11/29/19 Attend Phys: Irving Sun Discharge: Date of : 64 Report #: [id number] THIS REPORT FOR: //name// [facility] Test Date: 2019-12-01 Test Time: 14:56:05 Pat Name: XU BAUTISTA Department: Room: [address] Gender: F Client Services Vice President: : 1960 Requested By: Chris Lackey Order Number: [id number] Derrick MD: Jaylen Carter Measurements Intervals [place] Rate: 62 P: 25 AL: 177 QRS: -21 QRSD: 158 T: 60 QT: 461 QTc: 469 Interpretive Statements Sinus rhythm Right bundle branch block Probable left ventricular hypertrophy Compared to ECG 11/29/2019 10:12:35 No significant changes Electronically Signed On 12-03-2019 10:37:16 HEAD OF PRECISION TARGETING by Jaylen Carter [email or web address] <ELECTRONICALLY SIGNED> By: Jaylen Carter MD, [facility] 12/03/19 1037 1456 1456 Jaylen Carter MD, FAC /EPI
[2019-12-03] MEDS ORDERED: PLAVIX 75 MG TA75 M1 PO (13:00)
[2019-12-03] MEDS ORDERED: LIPITOR 40 MG T40 M1 PO (13:00)
[2019-12-03] MEDS ORDERED: TRILEPTAL300 MG PO (13:01)
[2019-12-03] MEDS ORDERED: ASPIRIN325 PO (13:01)
[2019-12-03] MEDS ORDERED: RENAL-VITE TAB0.8 MG PO (13:02)
--- NOTE | 2019-12-03 17:07 | 2DMMODE ---
[place] [address] 2 D/M-MODE ECHOCARDIOGRAM Name: XU BAUTISTA Room: [address] IN [facility]#: [id number] Admission: 11/29/19 Attend Phys: Gina Ervin Discharge: Date of : 64 Date of Service: 12/03/19 1706 Report #: [id number] THIS REPORT FOR: //name// ADDENDUM APPROVED REPORT Study performed: 11/30/2019 10:26:20 EXAM: Comprehensive 2D, Doppler, and color-flow Echocardiogram Patient Location: In-Patient Room #: [facility] Status: routine BSA: 1.66 HR: 55 bpm BP: 107/57 mmHg Rhythm: NSR Other Information Study Quality: Good Indications CVA/TIA Syncope HOCM Echo Enhancing Agent Indication: Rule out Shunt Agent(s) / Amount(s) Used: Agitated Saline 10 cc 2D Dimensions IVSd: 17.66 (7-11mm) LVOT Diam: 19.84 (18-24mm) LVDd: 41.74 mm PWd: 11.22 (7-11mm) Ascending Ao: 33.31 (22-36mm) LVDs: 17.77 (25-40mm) Aortic Root: 29.58 mm Volumes Left Atrial Volume (Systole) LA ESV Index: 21.90 mL/m2 Aortic Valve AoV Peak Clint.: 3.64 m/s AO Peak Gr.: 52.89 mmHg LVOT Max P.44 mmHg AO Mean Gr.: 24.11 mmHg LVOT Mean P.07 mmHg LVOT Max V: 1.76 m/s AO V2 VTI: 77.49 cm LVOT Mean V: 1.12 m/[place] [address] 2 D/M-MODE ECHOCARDIOGRAM Name: XU BAUTISTA Room: [address] IN M.R.#: [id number] Admission: 11/29/19 Attend Phys: Gina Ervin Discharge: Date of : 64 Date of Service: 12/03/19 1706 Report #: [id number] BOBBI (VTI): 1.21 cm2 LVOT V1 VTI: 30.34 cm Mitral Valve E/A Ratio: 0.71 MV Decel. Time: 351.18 ms MV E Max Clint.: 0.42 m/s MV PHT: 101.84 ms MVA (PHT): 2.16 cm2 TDI E/Lateral E': 7.00 E/Medial E': 7.00 Medial E' Clint.: 0.06 m/s Lateral E' Clint.: 0.06 m/s Pulmonary Valve PV Peak Clint.: 1.08 m/s PV Peak Gr.: 4.71 mmHg Tricuspid Valve RAP Estimate: 5.00 mmHg TR Peak Gr.: 18.09 mmHg RVSP: 23.00 mmHg PA Pressure: 23.00 mmHg Left Ventricle The left ventricle is normal size. There is normal LV segmental wall motion. Left ventricular outflow tract gradient is present. Moderate to severe symmetric LVH is present Left ventricular systolic function is normal. The left ventricular ejection fraction is within the normal range. LVEF is 60-65%. Grade I - abnormal relaxation pattern. Right Ventricle The right ventricle is normal size. The right ventricular systolic function is normal. Atria Left atrium is mildly dilated. Interatrial septum is intact without evidence of ASD or PFO. The right atrium size is normal. Aortic Valve The aortic valve is normal in structure. No aortic regurgitation is present. There is no aortic valvular stenosis. Mitral Valve The mitral valve is normal in structure. Trace mitral regurgitation. No evidence [place] [address] 2 D/M-MODE ECHOCARDIOGRAM Name: XU BAUTISTA VICENTE Room: [address] IN .R.#: [id number] Admission: 11/29/19 Attend Phys: Gina Ervin Discharge: Date of : 64 Date of Service: 12/03/19 1706 Report #: [id number] Tricuspid Valve The tricuspid valve is normal in structure. Trace tricuspid regurgitation. No pulmonary hypertension. Pulmonic Valve The pulmonary valve is normal in structure. There is no pulmonic valvular regurgitation. Great Vessels The aortic root is normal in size. IVC is normal in size and collapses >50% with inspiration. Pericardium There is no pericardial effusion. <Conclusion> The left ventricle is normal size. Left ventricular systolic function is normal. The left ventricular ejection fraction is within the normal range. LVEF is 60-65%. Grade I - abnormal relaxation pattern. The right ventricle is normal size. Left atrium is mildly dilated. The right atrium size is normal. The aortic valve is normal in structure. The mitral valve is normal in structure. Trace mitral regurgitation. The aortic root is normal in size. IVC is normal in size and collapses >50% with inspiration. There is no pericardial effusion. There is normal LV segmental wall motion. ModerateLeft ventricular outflow tract gradient is present. Moderate to severe symmetric LVH is present Interatrial septum is intact without evidence of ASD or PFO. <ELECTRONICALLY SIGNED> By: Jaylen Carter MD, FACC 12/03/191705 05 05 Jaylen Carter MD, FACC /INF
[2019-12-03 19:07] LABS: ANA INTERPRETATION Positive (())
== END 2019-12-03 18:49 | disposition home health service (06) | DRG 64 ==
LOC: M.ERS 10:05 → M.2W 13:19 → M.TBA-ER 13:19 → M.2W 14:38
PROVIDERS: Emergency Medicine; Family Medicine; Psychiatry & Neurology Neurology; ADMIT Internal Medicine
DX: I63.81 Other cerebral infarction due to occlusion or stenosis of small artery (principal); I63.232 Cerebral infarction due to unspecified occlusion or stenosis of left carotid arteries; N17.0 Acute kidney failure with tubular necrosis; I42.2 Other hypertrophic cardiomyopathy; I50.32 Chronic diastolic (congestive) heart failure; N39.0 Urinary tract infection, site not specified; I24.8 Other forms of acute ischemic heart disease; I11.0 Hypertensive heart disease with heart failure; F17.210 Nicotine dependence, cigarettes, uncomplicated; E78.5 Hyperlipidemia, unspecified; G51.0 Bell's palsy; I68.0 Cerebral amyloid angiopathy; I45.10 Unspecified right bundle-branch block; E87.6 Hypokalemia; I12.9 Hypertensive chronic kidney disease with stage 1 through stage 4 chronic kidney disease, or unspecified chronic kidney disease; N18.9 Chronic kidney disease, unspecified; E83.52 Hypercalcemia; R79.89 Other specified abnormal findings of blood chemistry; E86.0 Dehydration; R94.31 Abnormal electrocardiogram [ECG] [EKG]; I25.2 Old myocardial infarction; Z80.8 Family history of malignant neoplasm of other organs or systems; Z90.710 Acquired absence of both cervix and uterus; Z79.899 Other long term (current) drug therapy; Z88.2 Allergy status to sulfonamides

== ENCOUNTER 2019-12-13 06:44 | Inpatient (IN) | payer OTHER ==
[~2019-12-13] VITALS: Ht 157.5 cm; Wt 68.9 kg
--- NOTE | ~2019-12-13 | EKG ---
[place] [address] ELECTROCARDIOGRAM REPORT Name: XU BAUTISTA Room: [address] ADM IN M.R.#: [id number] Admission: 12/13/19 Attend Phys: Tuyet Mackey Discharge: Date of : 64 Report #: [id number] THIS REPORT FOR: //name// [facility] ED Test Date: 2019-12-13 Test Time: 07:28:46 Pat Name: XU BAUTISTA Department: Room: [facility] Gender: F Glass Curvature Gauger: JARAD : 1960 Requested By: Romelia Loera Order Number: [id number] MD: Measurements Intervals [place] Rate: 56 P: 14 WA: 179 QRS: -17 QRSD: 158 T: 44 QT: 503 QTc: 486 Interpretive Statements Sinus rhythm Consider left atrial enlargement Right bundle branch block Probable LVH with secondary repol abnrm Borderline prolonged QT interval Baseline wander in lead(s) V1,V6 No previous ECG available for comparison [email or web address] By: 0728 0728 Epiphany Epiphany, /EPI
--- NOTE | ~2019-12-13 | CON ---
[address] [address] CONSULTATION Name: XU BAUTISTA Room: [address] ADM IN M.R.#: [id number] Admission: 12/13/19 Attend Phys: Tuyet Mackey Discharge: Date of : 64 Report #: [id number] THIS REPORT FOR: //name// CC: Adilson Rivera DATE OF SERVICE: 12/13/2019 HISTORY OF PRESENT ILLNESS: This is a 59-year-old female patient who was in the hospital with a stroke. The patient's stroke was confirmed, but no definite cause was found. I reviewed the patient's records and it looks like the patient has seen Cardiology in the past. They have done even a catheterization on her and coronary is clean. She has multiple vascular risk factors. She was smoking, but she indicates she has stopped smoking. MRI also demonstrated finding of possible chronic hemorrhages. She had multiple episodes of syncope. She had syncope even when she went home. Her blood pressure has been low. She does not check her blood pressure. Plan was to do a monitor on this patient as an outpatient, but since then she had two episodes of syncope. She does not know what medication she went home. It looks like she was on clonidine and lisinopril at one time at least. She was supposed to be on statin, aspirin, and Plavix, but I do not know what medicine she is taking. REVIEW OF SYSTEMS: Positive for smoking, a recent stroke in the frontal area, syncope, and weakness which was generalized. She had a prior history of a hysterectomy and hypertension. A 14-point review of systems was carried out and it was positive for the above. It looks like she is also on Trileptal, the best I can tell. PAST MEDICAL HISTORY: Positive for stroke. FAMILY HISTORY: Unremarkable. SOCIAL HISTORY: She said she stopped smoking. PHYSICAL EXAMINATION: The patient's examination indicates that the patient is alert, responsive, and able to follow simple and complex command. Her mentation looks about the same. Cranial nerve examination and neuromuscular examination looks about the same. Cardiac examinations appear unremarkable. No respiratory difficulty was noticed. Blood pressure is about 105/61, respirations 14, and pulse is 52. DIAGNOSTIC DATA: MRI was reviewed. It showed probably extension of CVA. IMPRESSION AND PLAN: At least part of the patient's problem appeared to be low blood pressure. That can cause extension of the stroke, but extension of the stroke can also occur normally. We need to keep [place] [address] CONSULTATION Name: XU BAUTISTA VICENTE Room: [address] IN .R.#: [id number] Admission: 12/13/19 Attend Phys: Tuyet Mackey Discharge: Date of : 64 Report #: [id number] and high if we can. MRI has shown multiple abnormalities. I am not sure what the etiology is and workup is difficult because of kidney problem. Her worsening renal function may be contributing to her etiology and I will suggest consider consulting renal in this patient. In this patient, I will also favor a loop recorder because she keeps having these episodes and the etiology is not very clear for it. She has not gotten any benefits from Trileptal and we may have to discontinue because it looks like it was started recently. About 50 minutes of time was spent taking care of this patient and majority in counseling and coordinating. By: [id number] [id number] Salcido MD /nt
[~2019-12-13 06:44] MED LIST changes: +ASPIRIN325 PO; +LIPITOR 40 MG T40 M1 PO; +PLAVIX 75 MG TA75 M1 PO; +RENAL-VITE TAB0.8 MG PO; +TRILEPTAL300 MG PO
[2019-12-13 07:13] LABS: ABSOLUTE EOSINOPHILS 0.4 thou/uL (0.0-0.7); ABSOLUTE LYMPHOCYTES 2.2 thou/uL (0.8-5.3); ABSOLUTE MONOCYTES 0.8 thou/uL (0.0-1.2); ABSOLUTE NEUTROPHILS 7.6 thou/uL (1.6-8.1); BASOPHILS 0.3 %; EOSINOPHILS 3.2 %; HEMATOCRIT 44.5 % (37.0-47.0); HEMOGLOBIN 15.6 gm/dL (12.0-15.0); LYMPHOCYTES 19.9 %; MCH 31.4 pg (26.0-34.0); MCV 89.7 fL (80.0-100.0); MONOCYTES 7.7 %; MPV 7.8 fl. (7.2-11.1); NUCLEATED RBCS 0 /100WBC; PLATELET COUNT* 426 thou/uL (150-400); POLYS 68.9 %; RBC 4.96 mil/uL (4.20-5.00); RDW-CV 13.1 % (10.5-14.5)
[2019-12-13 07:18] VITALS: BP 117/62
[2019-12-13 07:21] LABS: CALCIUM 9.9 mg/dL (8.5-10.1); CREATININE 2.6 mg/dL (0.6-1.3); POTASSIUM 3.2 mmol/L (3.5-5.1)
[2019-12-13 07:26] LABS: ALBUMIN 3.9 g/dL (3.4-5.0); TOTAL BILIRUBIN 0.5 mg/dL (<0.1-1.0); TOTAL PROTEIN 8.2 g/dL (6.4-8.2)
[2019-12-13 07:55] LABS: APTT 23.2 Seconds (25.0-31.3); PROTIME 10.7 Seconds (9.20-11.50)
[2019-12-13 09:56] VITALS: BP 105/61
[2019-12-13 16:00] VITALS: BP 106/52
[2019-12-13] MEDS ORDERED: LIPITOR 40 MG T40 M1 PO (18:50)
[2019-12-13 20:10] VITALS: BP 107/60
[2019-12-13 22:02] LABS: URINE BILIRUBIN NEGATIVE (Negative); URINE BLOOD NEGATIVE (Negative); URINE CLARITY CLEAR; URINE COLOR YELLOW; URINE GLUCOSE-RANDOM NEGATIVE (Negative); URINE KETONES NEGATIVE (Negative); URINE LEUKOCYTES NEGATIVE (Negative); URINE NITRITE NEGATIVE (Negative); URINE PROTEIN NEGATIVE (Negative); URINE UROBILINOGEN 0.2 E.U./dl (0.2-1.0)
[2019-12-13 22:20] VITALS: BP 116/62
[2019-12-14] VITALS (7 sets, daily range): BP systolic 107–160; BP diastolic 61–97
[2019-12-14 05:51] LABS: ALBUMIN 2.6 g/dL (3.4-5.0); ALKALINE PHOSPHATASE 74 U/L (46-116); ANION GAP 8 mmol/L (7-16); BUN 31 mg/dL (7-18); CALCIUM 8.2 mg/dL (8.5-10.1); CHLORIDE 111 mmol/L (98-107); CHOLESTEROL 134 mg/dL (<200); CO2 25 mmol/L (21-32); CREATININE 1.5 mg/dL (0.6-1.3); GLUCOSE 88 mg/dL (70-99); HDL CHOLESTEROL 26 mg/dL (>40); LDL CHOLESTEROL 87 mg/dL (<100); POTASSIUM 3.3 mmol/L (3.5-5.1); SGOT 19 U/L (15-37); SGPT 23 U/L (30-65); SODIUM 144 mmol/L (136-145); TC:HDL 5.2 Ratio (Not establshd); TOTAL BILIRUBIN 0.3 mg/dL (<0.1-1.0); TOTAL PROTEIN 5.6 g/dL (6.4-8.2); TRIGLYCERIDE 107 mg/dL (<150); VLDL 21 mg/dL (<40)
[2019-12-14 05:52] LABS: SERUM ASSESSMENT Clear
--- NOTE | 2019-12-14 16:46 | CON ---
[address] [address] CONSULTATION Name: XU BAUTISTA Room: [address] ADM IN M.R.#: [id number] Admission: 12/13/19 Attend Phys: Tuyet Mackey Discharge: Date of : 64 Report #: [id number] THIS REPORT FOR: //name// cc: Adilson Jordan Bradley L. DO ~ THIS REPORT FOR: //name// CC: Adilson Rivera DATE OF SERVICE: 12/14/2019 CARDIOLOGY CONSULTATION HISTORY OF PRESENT ILLNESS: The patient is a 59-year-old single white female who I was asked to see in the hospital today after she suffered a stroke. The patient has an extensive past medical history. She initially was seen by my partner, Dr. Kosta Lawrence in 03/2019 and underwent a cardiac catheterization from the right femoral artery. She was found to have no significant coronary artery disease. She had a hyperdynamic left ventricular systolic function suggestive of a hypertrophic cardiomyopathy. The patient was then readmitted in 3 weeks ago after a syncopal spell and lightheadedness. She was seen by my nurse practitioner, Shawanda Rivera. CT scan showed evidence of previous infarction and a new evidence of infarction as well. She was sent home with an event recorder 10 days ago. EEG was normal. Carotid Doppler showed no significant stenosis. She underwent a workup for vasculitis. She was sent home on an aspirin. The patient came back to the hospital yesterday after again falling. She is weak and unsteady. Cardiology consultation was requested. She denies history of chest pain, shortness of breath, or palpitations. PAST MEDICAL HISTORY: Otherwise, she has had a hysterectomy and hypertension. CURRENT MEDICATIONS: Consists of Plavix, Lipitor, aspirin, Trileptal. ALLERGIES: SHE HAS AN ALLERGY TO SULFA DRUGS. FAMILY HISTORY: Negative for heart disease. SOCIAL HISTORY: She is from her , lives with brother in [place]. She smoked up until 2 days ago. Works in [employer]. No history of alcohol abuse. REVIEW OF SYSTEMS: She has had no history of GI bleeding. She does have a cough. No history of kidney disease, cancer, psychiatric illness. PHYSICAL EXAMINATION: GENERAL: Revealed a middle-aged female lying in bed. She appeared in no acute distress. VITAL SIGNS: She had a blood pressure 130/60 and pulse 60. She is afebrile. HEENT: She was anicteric. Conjunctivae are pink. Mucous membranes moist. NECK: Veins nondistended. No carotid bruits. CHEST: Clear to auscultation. CARDIOVASCULAR: Regular rate and rhythm, grade 2 systolic ejection murmur. ABDOMEN: Soft. EXTREMITIES: Had no edema. SKIN: Warm and dry. NEUROLOGIC: Very slow moving. LABORATORY AND RADIOLOGICAL DATA: Her ECG showed a sinus rhythm with a right bundle branch block. Her workup so far, laboratory; sodium 144, creatinine 1.5. Liver function studies were normal. Troponin 0.06. BNP 1770. TSH 2.8. Her white blood cell count 11.0, hemoglobin 15.6. Her MRI of the brain showed new frontal infarction, previous small hemorrhages. Previous carotid Doppler study showed mild plaquing, no high grade stenosis. Her chest x-ray showed no acute abnormality. She had a recent echocardiogram that showed ejection fraction 60%, left atrial enlargement. There was outflow tract gradient noted. There was left ventricular hypertrophy. No evidence of AST or PFO. IMPRESSION AND RECOMMENDATIONS: 1. Mild hypertrophic cardiomyopathy. 2. History of hypertension. The patient has been on a beta-selina, ANTHONY inhibitor, diuretic. 3. Hyperlipidemia. The patient is on a statin drug. 4. Multiple strokes. The patient is on Plavix and aspirin. Currently has an event recorder in place. 5. Tobacco abuse. 6. Chronic bronchitis. <ELECTRONICALLY SIGNED> By: Jaylen Carter MD, FACC 12/14/19 1646 [id number] Carter MD, FACC /nt
[2019-12-15] VITALS: BP 154/54
[2019-12-15 02:10] LABS: GLYCOHEMOGLOBIN (HGB A1C) 5.3 % (4.8-5.6)
[2019-12-15 04:00] VITALS: BP 149/70
[2019-12-15 06:11] LABS: CALCIUM 9.1 mg/dL (8.5-10.1); CREATININE 1.2 mg/dL (0.6-1.3); MAGNESIUM 1.8 mg/dL (1.8-2.4)
[2019-12-15 06:19] LABS: POTASSIUM 2.9 mmol/L (3.5-5.1)
[2019-12-15 07:00] VITALS: BP 158/76
[2019-12-15 07:15] LABS: HEMATOCRIT 33.7 % (37.0-47.0); MCH 31.7 pg (26.0-34.0); MCHC 35.3 g/dL (28.0-37.0); MCV 89.8 fL (80.0-100.0); MPV 8.2 fl. (7.2-11.1); RBC 3.76 mil/uL (4.20-5.00); RDW-CV 13.3 % (10.5-14.5); WBC 7.5 thou/uL (4.0-11.0)
[2019-12-15 07:27] LABS: HEMOGLOBIN 11.9 gm/dL (12.0-15.0)
[2019-12-15 12:00] VITALS: BP 145/90
[2019-12-15 16:00] VITALS: BP 151/83
[2019-12-15 19:40] VITALS: BP 187/93
[2019-12-16] VITALS: BP 178/74
[2019-12-16 04:00] VITALS: BP 131/69
[2019-12-16 05:55] LABS: CALCIUM 9.4 mg/dL (8.5-10.1); CREATININE 1.1 mg/dL (0.6-1.3); POTASSIUM 3.6 mmol/L (3.5-5.1)
[2019-12-16 07:00] VITALS: BP 161/88
[2019-12-16] MEDS ORDERED: LIPITOR 40 MG T40 M1 PO (10:01)
[2019-12-16] MEDS ORDERED: NICOTINE TRANSD14 M1 TRANSDERM (10:01)
[2019-12-16] MEDS ORDERED: VITAMIN D21250 MC1 PO (10:01)
[2019-12-16] MEDS ORDERED: TYLENOL325 MG PO (11:11)
[2019-12-16 11:24] VITALS: BP 161/88
== END 2019-12-16 13:23 | disposition home or self-care (01) | DRG 65 ==
LOC: M.ERS 06:44 → M.TBA-ER 08:14 → M.2W 08:14
PROVIDERS: Emergency Medicine Emergency Medical Services; Internal Medicine Cardiovascular Disease; Personal Emergency Response Attendant; Psychiatry & Neurology Neurology; ADMIT Family Medicine
DX: I63.89 Other cerebral infarction (principal); N17.9 Acute kidney failure, unspecified; I13.0 Hypertensive heart and chronic kidney disease with heart failure and stage 1 through stage 4 chronic kidney disease, or unspecified chronic kidney disease; I50.32 Chronic diastolic (congestive) heart failure; I42.1 Obstructive hypertrophic cardiomyopathy; I65.22 Occlusion and stenosis of left carotid artery; R27.0 Ataxia, unspecified; E78.5 Hyperlipidemia, unspecified; Z66 Do not resuscitate; J42 Unspecified chronic bronchitis; N18.3 Chronic kidney disease, stage 3 (moderate); E87.6 Hypokalemia; F17.210 Nicotine dependence, cigarettes, uncomplicated; I95.9 Hypotension, unspecified; Z80.8 Family history of malignant neoplasm of other organs or systems; Z90.710 Acquired absence of both cervix and uterus; Z79.82 Long term (current) use of aspirin; Z79.899 Other long term (current) drug therapy; Z88.2 Allergy status to sulfonamides; Z72.89 Other problems related to lifestyle; Z28.21 Immunization not carried out because of patient refusal

== ENCOUNTER 2020-01-22 09:47 | Emergency (ER) | payer OTHER ==
[~2020-01-22] VITALS: Ht 157.5 cm; Wt 63.5 kg
[~2020-01-22 09:47] MED LIST changes: +NICOTINE TRANSD14 M1 TRANSDERM; -TOPROL XL50 MG PO; +TYLENOL325 MG PO; +VITAMIN D21250 MC1 PO
[2020-01-22] MEDS ORDERED: ASPIRIN EC325 M1 PO (09:56)
[2020-01-22] MEDS ORDERED: VITAMIN B-121000 MC2 SUBLING (09:57)
[2020-01-22] MEDS ORDERED: ASA81BEC PO (09:57)
[2020-01-22] MEDS ORDERED: ZESTRIL10 MG PO (09:59)
[2020-01-22 10:01] LABS: ABSOLUTE EOSINOPHILS 0.1 thou/uL (0.0-0.7); ABSOLUTE LYMPHOCYTES 2.2 thou/uL (0.8-5.3); ABSOLUTE MONOCYTES 0.7 thou/uL (0.0-1.2); ABSOLUTE NEUTROPHILS 2.5 thou/uL (1.6-8.1); BASOPHILS 0.2 %; HEMATOCRIT 40.8 % (37.0-47.0); HEMOGLOBIN 14.5 gm/dL (12.0-15.0); LYMPHOCYTES 39.9 %; MCH 31.7 pg (26.0-34.0); MCHC 35.6 g/dL (28.0-37.0); MCV 88.9 fL (80.0-100.0); MONOCYTES 12.5 %; MPV 8.6 fl. (7.2-11.1); NUCLEATED RBCS 0 /100WBC; PLATELET COUNT* 326 thou/uL (150-400); POLYS 45.4 %; RBC 4.58 mil/uL (4.20-5.00); RDW-CV 14.5 % (10.5-14.5); WBC 5.6 thou/uL (4.0-11.0)
[2020-01-22 10:08] LABS: CALCIUM 9.7 mg/dL (8.5-10.1); CREATININE 1.1 mg/dL (0.6-1.3)
[2020-01-22 10:12] LABS: APTT 25.9 Seconds (25.0-31.3); INR 1.1; PROTIME 10.8 Seconds (9.20-11.50)
[2020-01-22 10:19] LABS: ALBUMIN 3.5 g/dL (3.4-5.0); TOTAL BILIRUBIN 0.4 mg/dL (<0.1-1.0)
[2020-01-22 11:12] LABS: URINE BLOOD 2+ (Negative); URINE CLARITY CLEAR; URINE COLOR YELLOW; URINE GLUCOSE-RANDOM NEGATIVE (Negative); URINE KETONES 1+ (Negative); URINE LEUKOCYTES-REFLEX NEGATIVE (Negative); URINE NITRITE-REFLEX NEGATIVE (Negative); URINE PROTEIN TRACE (Negative); URINE SPECIFIC GRAVITY 1.025 (1.005-1.030); URINE UROBILINOGEN 0.2 E.U./dl (0.2-1.0)
[2020-01-22 11:15] LABS: ICTOTEST (BILI CONFIRMATORY) Negative (Negative); URINE BILIRUBIN 2+ (Negative)
[2020-01-22 11:18] LABS: BACTERIA-REFLEX 1-9 Few /HPF (None Seen); CASTS None Seen /LPF (None Seen); CRYSTALS None Seen /LPF (None Seen); MUCUS None Seen strn/LPF (None Seen); SQUAMOUS >10 Many /LPF (0-3); URINE WBC-REFLEX 0-5 Rare /HPF (0-5)
[2020-01-22 11:42] VITALS: BP 162/93
--- NOTE | 2020-01-22 16:31 | EKG ---
[place] [address] ELECTROCARDIOGRAM REPORT Name: XU BAUTISTA Room: [facility]#: [id number] Admission: 01/22/20 Attend Phys: Discharge: 01/22/20 Date of : 64 Date of Service: 01/22/20 0956 Report #: [id number] THIS REPORT FOR: //name// [facility] ED Test Date: 2020-01-22 Test Time: 09:56:42 Pat Name: XU BAUTISTA Department: Room: Gender: F Pricing Analyst: : 1960 Requested By: Stevie Franks Order Number: [id number] MD: Jonnathan Ruff Measurements Intervals [place] Rate: 67 P: -2 DC: 158 QRS: -22 QRSD: 151 T: 8 QT: 414 QTc: 437 Interpretive Statements Sinus rhythm Right bundle branch block Possible left ventricular hypertrophy Baseline wander in lead(s) V5 Compared to ECG 12/13/2019 07:28:46 No significant changes Electronically Signed On 01-22-2020 16:30:31 CDT by Jonnathan Ruff [email or web address] <ELECTRONICALLY SIGNED> By: Jonnathan Ruff MD, [facility] 01/22/20 1630 0956 0956 Jonnathan Ruff MD, [facility] /EPI
== END 2020-01-22 11:44 | disposition home or self-care (01) ==
LOC: M.ERS 09:47
PROVIDERS: Family Medicine
DX: R42 Dizziness and giddiness (principal); I10 Essential (primary) hypertension; F17.210 Nicotine dependence, cigarettes, uncomplicated; Z90.710 Acquired absence of both cervix and uterus; Z86.73 Personal history of transient ischemic attack (TIA), and cerebral infarction without residual deficits; Z88.2 Allergy status to sulfonamides